=== PATIENT | male | born 1995 | race African-American/Black ===

== ENCOUNTER 2024-04-04 19:11 | Emergency (ER) | payer BC, OTHER ==
[~2024-04-04] VITALS: Ht 175.3 cm; Wt 132.2 kg
[2024-04-04 20:10] VITALS: BP 136/95; PULSE 94; RESP 18
[2024-04-04] MEDS ORDERED: PRED20TA2 PO (20:40)
[2024-04-04] MEDS ORDERED: EPIN0.3I24 IJ (20:40)
[2024-04-04] MEDS ORDERED: DIPH25CA66 PO (20:40)
--- NOTE | 2024-04-04 20:40 | ED.PDOC ---
HPI Allergic reaction HPI Comments 29 YEAR OLD MALE PRESENTS TO ER WITH COMPLAINTS OF ALLERGIC REACTION X2 HOURS. PATIENT WITH PMH SIGNIFICANT FOR ALLERGIES TO CASHEWS REPORTS THAT HE CONSUMED A SMOOTHIE THAT CONTAINED CASHEW MILK 2 HOURS PRIOR TO ARRIVAL TO ER AND IMMEDIATELY STARTED EXPERIENCING SWELLING TO UPPER LIP WITH ASSOCIATED NAUSEA/VOMITING. DENIES ANY PAIN. DENIES USE OF MEDICATIONS FOR CURRENT SYMPTOMS. PATIENT PRESENTS TO ER AMBULATORY ON ARRIVAL, WITH STEADY GAIT, SPEAKING IN CLEAR AND COMPLETE SENTENCES, IN NO DISTRESS WITH MILD SWELLING NOTED TO UPPER LIP. DENIES SHORTNESS OF BREATH, CHEST PAIN, DIFFICULTY SWALLOWING, DROOLING OR ANY FURTHER SYMPTOMS/COMPLAINTS Chief Complaint: Allergic Reaction Time Seen by MD: 19:24 Primary Care Provider: UNKNOWN Reviewed Notes: Nurses Notes, Medications, Allergies Allergies: Coded Allergies: Cashew Nut Oil (Verified Allergy, Intermediate, 04/04/24) [place] (Verified Allergy, Unknown, 04/04/24) Uncoded Allergies: EGGS (Allergy, Unknown, 04/04/24) FISH (Allergy, Unknown, 04/04/24) PEANUTS (Allergy, Unknown, 04/04/24) Home Meds Active Scripts Epinephrine (Epinephrine) 0.3 Mg/0.3 Ml Inj, 0.3 MG IJ ONCE PRN, #1 INJ 0 Ref ills Prov:DIAMOND HANCOCK 04/04/24 Prednisone (Prednisone) 20 Mg Tab, 20 MG PO BID for 5 Days, #10 TAB 0 Refills Prov:DIAMOND HANCOCK 04/04/24 Diphenhydramine Hcl (Benadryl Allergy) 25 Mg Cap, 2 CAP PO Q6HPRN, #30 CAP 0 Refills Prov:DIAMOND HANCOCK 04/04/24 Information Source: Patient Mode of Arrival: Ambulatory Past Medical History PAST MEDICAL HISTORY: Asthma Surgical History: Denies all surgeries Family History Family History: Unknown Social History Smoker: Non-Smoker Alcohol: Denies ETOH Use Drugs: Denies Drug Use Lives In: Home Constitutional: denies: chills, diaphoresis, fatigue, fever, malaise, sweats, weakness, others EENTM: reports: others ( STATED IN HPI) Respiratory: denies: cough, hemoptysis, orthopnea, SOB at rest, shortness of breath, SOB with excertion, stridor, wheezing, others Cardiovascular: denies: chest pain, dizzy spells, diaphoresis, Dyspnea on exer tion, edema, irregular heart beat, left arm pain, lightheadedness, palpitations, PND, syncope, others Gastrointestinal: denies: abdomen distended, abdominal pain, blood streaked bowels, constipated, diarrhea, dysphagia, difficulty swallowing, hematemesis, melena, nausea, poor appetite, poor fluid intake, rectal bleeding, rectal pain, vomiting, others Genitourinary: denies: burning, dysuria, flank pain, frequency, hematuria, incontinence, penile discharge, penile sore, pain, testicle pain, testicle swelling, urgency, others Neurological: denies: dizziness, fainting, headache, left sided numbness, left sided weakness, numbness, paresthesia, pre-existing deficit, right sided numbness, right sided weakness, seizure, speech problems, tingling, tremors, weakness, others Musculoskeletal: denies: back pain, gout, joint pain, joint swelling, muscle pain, muscle stiffness, neck pain, others Integumetry: denies: bruises, change in color, change in hair/nails, dryness, laceration, lesions, lumps, rash, wounds, others Allergic/Immunocompromised: reports: others ( STATED IN HPI) Hematologic/Lymphatic: denies: anemia, blood clots, easy bleeding, easy bruising, swollen glands, others Endocrine: denies: excessive hunger, excessive sweating, excessive thirst, excessive urination, flushing, intolerance to cold, intolerance to heat, un explained weight gain, unexplained weight loss, others Psychiatric: denies: anxiety, bipolar disorder, depression, hopeless, panic disorder, schizophrenia, sleepless, suicidal, others Physical Exam General Appearance: No Apparent Distress HEENT: Normal ENT Inspection, PERRL/EOMI, Pharynx Normal, TMs Normal, Other (MILD SWELLING NOTED DIFFUSE TO UPPER LIP. 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 Was a procedure done?: No Sedation Sedation?: No Differential diagnosis (all) Differential Diagnosis: Anaphylaxis, Angioedema, Bronchospasm X-Ray, Labs, Meds, VS Vital Signs Date Time Temp Pulse Resp B/P (MAP) Pulse Ox O2 Delivery O2 Flow Rate FiO2 04/04/24 20:41 98 Room Air* 0 21 04/04/24 20:10 98.6 94 18 136/95 (109) 98 04/04/24 20:10 18 98 Room Air* 0 21 Current Medications Medications (Trade) Dose Ordered Sig/Lance Route Start Time Stop Time Status Last Admin Diphenhydramine HCl (Benadryl Injection) 25 mg ONCE ONCE IM 04/04/24 20:45 04/04/24 20:46 DC 04/04/24 20:49 Methylprednisolone Sodium Succinate (Solu Medrol) 125 mg ONCE ONCE IM 04/04/24 20:45 04/04/24 20:46 DC 04/04/24 20:49 SOLU-MEDROL 125 MG IM ORDERED BENADRYL 25 MG IM ORDERED PATIENT HAD IMPROVEMENT IN SYMPTOMS, TOLERATING P.O. INTAKE WELL AND IN NO DISTRESS PRIOR TO DISCHARGE DIET EDUCATION DISCUSSED AND ADVISED ON STRICT AVOIDANCE OF NUT CONTAINING PRODUCTS ADVISED TO FOLLOW UP WITH PCP IN 1-2 DAYS PATIENT VERBALIZED UNDERSTANDING AND AGREEABLE WITH CURRENT PLAN OF CARE ADVISED TO RETURN TO ER IMMEDIATELY IF SYMPTOMS WORSEN Time of 1ST Reevaluation: 20:44 Reevaluation 1ST: N/A Patient Education/Counseling: Diagnosis, Treatment, Prognosis, Need For Follow Up Family Education/Counseling: No Family Present Departure 1 Departure Time of Disposition: 20:46 Impression: Primary Impression: Allergic reaction Qualified Codes: T78.40XA - Allergy, unspecified, initial encounter Disposition: HOME / SELF CARE / HOMELESS Condition: Stable e-Prescriptions Epinephrine (Epinephrine) 0.3 Mg/0.3 Ml Inj 0.3 MG IJ ONCE PRN, #1 INJ 0 Refills Prov: DIAMOND HANCOCK 1/15/25 Prednisone (Prednisone) 20 Mg Tab 20 MG PO BID for 5 Days, #10 TAB 0 Refills Prov: DIAMOND HANCOCK 04/04/24 Diphenhydramine Hcl (Benadryl Allergy) 25 Mg Cap 2 CAP PO Q6HPRN, #30 CAP 0 Refills Prov: DIAMOND HANCOCK 04/04/24 Discharged With: Self Critical Care Note Critical Care Time?: No Stability Stability form required: No Heart Score Heart Score: Heart Score Response (Comments) Value History N/A 0 EKG N/A 0 Age N/A 0 Risk Factors N/A 0 Troponin N/A 0 Total 0 DIAMOND HANCOCK Apr 04, 2024 20:40
[2024-04-04 20:41] VITALS: O2SAT 98
[2024-04-04] MEDS: diphenhdrAMINE HCL 50 MG/1 ML VL IM ONE (20:49)
[2024-04-04] MEDS: methylPREDNISolone SOD SUCC 125 MG/2 ML VL IM ONE (20:49)
== END 2024-04-04 20:57 | disposition home or self-care (01) ==
LOC: ER 19:11
DX: T78.49XA Other allergy, initial encounter (principal); R22.0 Localized swelling, mass and lump, head; R11.2 Nausea with vomiting, unspecified; J45.909 Unspecified asthma, uncomplicated; Z91.013 Allergy to seafood; Z91.012 Allergy to eggs; Z91.010 Allergy to peanuts; Z79.899 Other long term (current) drug therapy; X58.XXXA Exposure to other specified factors, initial encounter
CPT/HCPCS: 96372; 99284; J1200; J2919